=== PATIENT | female | born 1945 ===

== ENCOUNTER 2019-01-08 09:55 | Outpatient (CLI) | payer MEDICARE | END 2019-01-08 09:56 | disposition home or self-care (01) | LOC: C.LAB 09:55 | DX: I10 Essential (primary) hypertension (principal); E11.9 Type 2 diabetes mellitus without complications; E03.9 Hypothyroidism, unspecified; N39.0 Urinary tract infection, site not specified; K86.1 Other chronic pancreatitis ==